=== PATIENT | female | born 1975 | race Hispanic/Latino ===

== ENCOUNTER 2017-05-09 19:02 | Emergency (ER) | payer OTHER ==
[~2017-05-09] VITALS: Ht 160 cm; Wt 117.9 kg
[~2017-05-09 19:02] MED LIST: ATORVASTATIN CA40 M1 PO; GABAPENTIN300 M2 PO; GLIMEPIRIDE2 MG PO; HUMALOG MI100 UNIT/4 SC; HYDROXYZINE HCL25 M2 PO; LEVOTHYROXINE200 MC1 PO; LINZESS145 MC1 PO; LISINOPRIL-HCT1 EAC2 PO; LISINOPRIL20 M1 PO; METFORMIN HCL1000 M1 PO; NORVASC10 M1 PO; OMEPRAZOLE40 M1 PO; VITAMIN D250000 UNIT PO
[2017-05-09 19:58] LABS: ABSOLUTE BASOPHIL COUNT 0 /CUMM (0.0-0.2); ABSOLUTE EOSINOPHIL COUNT 0.3 /CUMM (0.0-0.7); ABSOLUTE GRANULOCYTE CT 6.7 /CUMM (1.4-6.5); ABSOLUTE LYMPH COUNT 1.9 /CUMM (1.2-3.4); ABSOLUTE MONOCYTE COUNT 0.7 /CUMM (0.10-0.60); BASOPHIL % 0.3 % (0.0-2.0); EOSINOPHIL % 3.2 % (0-5); GRANULOCYTE % 69.8 % (42.2-75.2); HEMATOCRIT 37.8 % (37-47); MEAN CORPUSCULAR HGB 27.8 PG (27.0-31.0); MEAN CORPUSCULAR HGB CONC 32.4 G/DL (33.0-37.0); MEAN CORPUSCULAR VOLUME 85.7 FL (81.0-99.0); PLATELET COUNT 403 /CUMM (130-400); RBC DISTRIBUTION WIDTH 13.7 % (11.5-14.5); RED BLOOD CELL CT 4.42 /CUMM (4.20-5.40); WHITE BLOOD CELL COUNT 9.6 /CUMM (4.8-10.8)
--- NOTE | 2017-05-09 20:26 | ULTRASOUND REPORT ---
EXAMINATION: US TRIPLEX OF LOWER EXTREMITIES, BILATERAL CLINICAL INFORMATION: Bilateral lower extremity pain and swelling. Edema. COMPARISON: None TECHNIQUE: Color-flow triplex imaging with spectral analysis and compression Doppler were performed on the lower extremities. FINDINGS: Respiratory variation, normal compression and augmented flow are noted throughout the lower extremities. The visualized common femoral vein, superficial femoral vein, profunda femoral vein, popliteal vein and midcalf peroneal and posterior tibial venous segments show no evidence of deep venous thrombosis. There is no Guerrero's cyst. IMPRESSION: Normal triplex scan without evidence of deep venous thrombosis involving the lower extremities.
--- NOTE | 2017-05-09 20:41 | RADIOLOGY REPORT ---
EXAMINATION: XR CHEST CLINICAL INFORMATION: 42-year-old woman with CHF. COMPARISON: None TECHNIQUE: 2 views of the chest were obtained. FINDINGS: The lungs are well expanded and clear, without evidence of focal consolidation or overt pulmonary edema. There is mild cardiomegaly. There are no large pleural effusions. IMPRESSION: There is no evidence of an acute cardiopulmonary process.
--- NOTE | 2017-05-09 21:35 | ED UPPER/LOWER EXTREMITY COMPL ---
History of Present Illness General Chief Complaint: General Adult Stated Complaint: SWOLLEN LEGS Source: patient Exam Limitations: no limitations Vital Signs & Intake/Output Vital Signs & Intake/Output Vital Signs Date Time Temp Pulse Resp B/P B/P Pulse O2 O2 Flow FiO2 Mean Ox Delivery Rate 05/10 0041 97.9 80 22 133/78 98 05/09 2223 98.9 96 18 148/83 95 Room Air 05/09 1927 97.3 105 24 162/91 96 Room Air ED Intake and Output 05/10 0000 05/09 1200 Intake Total Output Total Balance Patient 260 lb Weight Weight Reported by Patient Measurement Method Allergies Coded Allergies: adhesive tape (Mild, RASH 12/03/16) doxycycline (Mild, RASH 12/03/16) latex (Mild, RASH 12/03/16) Triage Note: PT PRESENTS TO THE ER C/O BLE SWELLING. PT RLE TRACE EDEMA, LLE +2 EDEMA AND VERY PAINFUL TO THE TOUCH. PT STATES THAT PAIN IS 10/10 LLE. PT HAS HX OF TRACH, REMOVED 2 YEARS AGO. PT STATES IN 2005 THAT SHE WENT TO HOSPITAL WITH SAME SYMPTOMS AND HAS CLOTS IN HER LUNGS WAS TRACHED AND WOKE UP DAYS LATER IN A COMA. Triage Nurses Notes Reviewed? yes Onset: Gradual Duration: day(s):, constant, continues in ED, getting worse Severity: severe Pain/Injury Location: Left: Hip, Leg, Knee, Thigh, Foot, Ankle. : No Patient currently breastfeeds: No HPI: Patient presents for evaluation of worsening and severe left leg pain that began 4-5 days ago. Initially the patient states she had bilateral leg swelling but then the left became worse than the right. She states that the pain became severe yesterday and today got to the point where she can no longer ambulate. She tried ibuprofen without relief. She denies any known injury. Nothing seems to make her feel better at this point. (Yessica TALLEY,Mike Gibbons) Reconcile Medications Atorvastatin Calcium 40 MG TABLET 1 TAB PO DAILY CHOLESTEROL Cephalexin (Keflex) 750 MG CAPSULE 1 CAP PO BID FOOT INFECTION Ergocalciferol (Vitamin D2) (Vitamin D2) 50,000 UNIT CAPSULE 1 CAP PO QW VITAMIN (Reported) Gabapentin 300 MG CAPSULE 1 CAP PO TID PRN PAIN Hydrocodone/Acetaminophen ([place] 5-325 Tablet) 5 MG-325 MG TABLET 1-2 TAB PO Q6 pain Insulin NPL/Insulin Lispro (Humalog Mix 50-50 Kwikpen) 100 UNIT/ML (50-50) INSULN.PEN 15 UNITS SC AC DM (Reported) Levothyroxine Sodium 200 MCG TABLET 1 TAB PO DAILY HYPOTHYROIDISM Linaclotide (Linzess) 145 MCG CAPSULE 1 CAP PO DAILY COSTIPATION (Reported) Lisinopril 20 MG TABLET 1 TAB PO DAILY HYPERTENSION Metformin HCl 1,000 MG TABLET 1 TAB PO BID DIABETES Omeprazole 40 MG CAPSULE.DR 1 CAP PO DAILY GERD Sulfamethoxazole/Trimethoprim (Bactrim Ds Tablet) 800 MG-160 MG TABLET 1 TAB PO BID FOOT INFECTION (Mario TALLEY,Paul Penaloza) Past History Travel History Traveled to [place] past 21 day No Medical History Any Pertinent Medical History? see below for history Cardiovascular: hypertension, hyperlipidemia Respiratory: asthma, obstructive sleep apnea Endocrine: diabetes, hypothyroidism Blood Disorders: DVT, PE Surgical History Surgical History: non-contributory Psychosocial History What is your primary language Turkish Tobacco Use: Current Not Daily (NON SMOKER) Family History Hx Contributory? No (Yessica TALLEY,Mike Gibbons) Review of Systems Review of Systems Constitutional: Reports: no symptoms. EENTM: Reports: no symptoms. Respiratory: Reports: no symptoms. Cardiovascular: Reports: no symptoms. Gastrointestinal/Abdominal: Reports: no symptoms. Genitourinary: Reports: no symptoms. Musculoskeletal: Reports: see HPI. Skin: Reports: see HPI. Neurological/Psychological: Reports: no symptoms. Hematologic/Endocrine: Reports: no symptoms. Immunological: Reports: no symptoms. All Other Systems: Reviewed and Negative (Yessica TALLEY,Mike Gibbons) Physical Exam Physical Exam General Appearance: SEE BELOW Comments: Gen.: Well-nourished, well-developed, no acute respiratory distress. Moderate distress secondary to left leg pain. Head: Normocephalic, atraumatic. Eyes: Normal inspection bilaterally Ears: Normal inspection bilaterally Nose: Normal inspection Throat/mouth : Moist mucosa Neck: Supple, full range of motion, no goiter Heart: Regular rate and rhythm Lungs: Quiet respirations Back: Normal range of motion Extremities: Right lower extremity: Unremarkable evaluation, left lower extremity: Swelling erythema and warmth of the dorsum of the left foot with severe tenderness. Patient is tender throughout the left lower extremity but only the foot shows obvious swelling erythema and warmth. There is no apparent manic injury. Neurologic: Cranial nerves grossly intact, speech is clear Skin: warm and dry Psychiatric: Calm, cooperative, no apparent delusions or hallucinations (Yessica TALLEY,Mike Gibbons) Progress Differential Diagnosis: cellulitis, compartment syndrome, contusion, dislocation , fracture, septic arthritis, sprain Plan of Care: Orders Procedure Date/time Status Durable Medical Equipment 05/09 2356 Active TROPONIN LEVEL 05/09 1936 Complete LACTIC ACID 05/09 1936 Complete D-DIMER 05/09 1936 Complete COMPREHENSIVE METABOLIC PANEL 05/09 1936 Complete CBC WITHOUT DIFFERENTIAL 05/09 1936 Complete EKG 05/09 1936 Active Laboratory Tests 05/09/172236: Lactic Acid Cancelled 05/09/17 1950: Anion Gap 10, Estimated GFR > 60, BUN/Creatinine Ratio 18.0, Glucose 234 H, Lactic Acid 1.1, Calcium 9.5, Total Bilirubin 0.5, AST 17, ALT 28, Alkaline Phosphatase 71, Troponin I < 0.01, Total Protein 7.1, Albumin 3.9, Globulin 3.2, Albumin/Globulin Ratio 1.2, D-Dimer High Sensitivty < 200, CBC w Diff NO MAN DIFF REQ, RBC 4.42, MCV 85.7, MCH 27.8, MCHC 32.4 L, RDW 13.7, MPV 7.0 L, Gran % 69.8, Lymphocytes % 19.5 L, Monocytes % 7.2, Eosinophils % 3.2, Basophils % 0.3, Absolute Granulocytes 6.7 H, Absolute Lymphocytes 1.9, Absolute Monocytes 0.7 H, Absolute Eosinophils 0.3, Absolute Basophils 0 Diagnostic Imaging: Discussed w/RAD: Radiology Read. Radiology Impression: PATIENT: BASIA PACKER PRESENT AGE: 42 PATIENT ACCOUNT NO: [id number] : 74 LOCATION: [facility] ORDERING PHYSICIAN: Mike Juan MD SERVICE DATE: 05/09/17 EXAM TYPE: RAD - XRY-FOOT COMPLETE, LEFT EXAMINATION: LEFT FOOT 3 VIEWS CLINICAL INFORMATION: Left foot swelling. Erythema. COMPARISON: None. TECHNIQUE: AP, lateral, oblique views of the left foot were obtained. FINDINGS: There are no fractures or dislocations. There is soft tissue swelling along the dorsum of the foot. No ankle joint effusion is identified. There are small calcaneal spurs. IMPRESSION: Soft tissue swelling without fracture or bone destruction. Small calcaneal spurs. DICTATED BY: Reji Stokes MD DATE/TIME DICTATED:05/09/172222 COMMERCIAL PEST CONTROL TECHNICIAN:CHARLEE DATE/TIME TRANSCRIBED:05/09/172222 CONFIDENTIAL, DO NOT COPY WITHOUT APPROPRIATE AUTHORIZATION. <Electronically signed in Other Vendor System> SIGNED BY: Reji Stokes MD 05/09/172226, PATIENT: BASIA PACKER PRESENT AGE: 42 PATIENT ACCOUNT NO: [id number] : 74 LOCATION: ER ORDERING PHYSICIAN: Mike Juan MD SERVICE DATE: 05/09/17 EXAM TYPE: RAD - XRY-CHEST XRAY, TWO VIEWS EXAMINATION: XR CHEST CLINICAL INFORMATION: 42-year-old woman with CHF. COMPARISON: None TECHNIQUE: 2 views of the chest were obtained. FINDINGS: The lungs are well expanded and clear, without evidence of focal consolidation or overt pulmonary edema. There is mild cardiomegaly. There are no large pleural effusions. IMPRESSION: There is no evidence of an acute cardiopulmonary process. DICTATED BY: Shantelle Godfrey MD DATE/TIME DICTATED:05/09/172034 COMMERCIAL PEST CONTROL TECHNICIAN:CHARLEE DATE/TIME TRANSCRIBED:05/09/172034 CONFIDENTIAL, DO NOT COPY WITHOUT APPROPRIATE AUTHORIZATION. <Electronically signed in Other Vendor System> SIGNED BY: Shantelle Godfrey MD 05/09/172040, PATIENT: BASIA PACKER PRESENT AGE: 42 PATIENT ACCOUNT NO: [id number] : 74 LOCATION: [facility] ORDERING PHYSICIAN: Aamir TINEO SERVICE DATE: 05/09/17 EXAM TYPE: US - US-EXT BILAT VENOUS DOPPLER EXAMINATION: US TRIPLEX OF LOWER EXTREMITIES, BILATERAL CLINICAL INFORMATION: Bilateral lower extremity pain and swelling. Edema. COMPARISON: None TECHNIQUE: Color-flow triplex imaging with spectral analysis and compression Doppler were performed on the lower extremities. FINDINGS: Respiratory variation, normal compression and augmented flow are noted throughout the lower extremities. The visualized common femoral vein, superficial femoral vein, profunda femoral vein, popliteal vein and midcalf peroneal and posterior tibial venous segments show no evidence of deep venous thrombosis. There is no Guerrero's cyst. IMPRESSION: Normal triplex scan without evidence of deep venous thrombosis involving the lower extremities. DICTATED BY: Reji Stokes MD DATE/TIME DICTATED:05/09/172016 COMMERCIAL PEST CONTROL TECHNICIAN:CHARLEE DATE/TIME TRANSCRIBED:05/09/172016 CONFIDENTIAL, DO NOT COPY WITHOUT APPROPRIATE AUTHORIZATION. <Electronically signed in Other Vendor System> SIGNED BY: Reji Stokes MD 05/09/172025 Comments: 05/09/2017 11:20:48 PM patient signed out to Dr. Martin at shift government instructor. Patient treated with IV antibiotics for left foot cellulitis and given IV acetaminophen and morphine for pain. Plan reevaluation for ability to ambulate and subsequent outpatient management. (Yessica TALLEY,Mike Gibbons) Departure Departure Disposition: STILL A PATIENT Condition: Stable Clinical Impression Primary Impression: Cellulitis of left foot Referrals: Tammy Munoz MD (PCP/Family) Departure Forms: Customer Survey General Discharge Information (Yessica TALLEY,Mike Gibbons) Departure Prescriptions: Current Visit Scripts Cephalexin (Keflex) 1 CAP PO BID #20 CAP Sulfamethoxazole/Trimethoprim (Bactrim Ds Tablet) 1 TAB PO BID #20 TAB Hydrocodone/Acetaminophen ([place] 5-325 Tablet) 1-2 TAB PO Q6 #20 TAB Comments 05/09/17, 23:57... Pt resting comfortably... benign labs/xray/u/s... pt safe for discharge with crutches... close follow up advised. PA/[employer] BUSINESS INTELLIGENCE CONSULTANT Co-Sign Statement Statement: ED Attending supervision documentation- [] I saw and evaluated the patient. I have also reviewed all the pertinent lab results and diagnostic results. I agree with the findings and the plan of care as documented in the PA's/[employer] BUSINESS INTELLIGENCE CONSULTANT's documentation. [] I have reviewed the ED Record and agree with the PA's/[employer] BUSINESS INTELLIGENCE CONSULTANT's documentation. [] Additions or exceptions (if any) to the PAs/[employer] BUSINESS INTELLIGENCE CONSULTANT's note and plan are summarized below: [] (Mario TALLEY,Paul Penaloza)
--- NOTE | 2017-05-09 22:27 | RADIOLOGY REPORT ---
EXAMINATION: LEFT FOOT 3 VIEWS CLINICAL INFORMATION: Left foot swelling. Erythema. COMPARISON: None. TECHNIQUE: AP, lateral, oblique views of the left foot were obtained. FINDINGS: There are no fractures or dislocations. There is soft tissue swelling along the dorsum of the foot. No ankle joint effusion is identified. There are small calcaneal spurs. IMPRESSION: Soft tissue swelling without fracture or bone destruction. Small calcaneal spurs.
[2017-05-09] MEDS ORDERED: NORCO 5-325 TA1 EACH PO (23:41)
[2017-05-09] MEDS ORDERED: BACTRIM DS TAB1 EACH PO (23:41)
[2017-05-09] MEDS ORDERED: KEFLEX750 M1 PO (23:41)
[2017-05-10 00:41] VITALS: BP 133/78
== END 2017-05-10 00:42 ==
LOC: ERH 19:02
PROVIDERS: Emergency Medicine
DX: L03.116 Cellulitis of left lower limb (principal)
CPT/HCPCS: 71046; 73630-LT; 93005; 93010; 93970; 96374; 96375; J0131

== ENCOUNTER 2017-08-11 16:23 | Emergency (ER) | payer OTHER ==
[~2017-08-11] VITALS: Ht 160 cm; Wt 117.9 kg
[~2017-08-11 16:23] MED LIST changes: +BACTRIM DS TAB1 EACH PO; +KEFLEX750 M1 PO; +NORCO 5-325 TA1 EACH PO
[2017-08-11 17:10] LABS: ABSOLUTE BASOPHIL COUNT 0 /CUMM (0.0-0.2); ABSOLUTE EOSINOPHIL COUNT 0.3 /CUMM (0.0-0.7); ABSOLUTE GRANULOCYTE CT 4.7 /CUMM (1.4-6.5); ABSOLUTE LYMPH COUNT 1.8 /CUMM (1.2-3.4); ABSOLUTE MONOCYTE COUNT 0.5 /CUMM (0.10-0.60); BASOPHIL % 0.6 % (0.0-2.0); EOSINOPHIL % 3.7 % (0-5); GRANULOCYTE % 64.5 % (42.2-75.2); HEMATOCRIT 32.7 % (37-47); MEAN CORPUSCULAR HGB 28.3 PG (27.0-31.0); MEAN CORPUSCULAR HGB CONC 33.5 G/DL (33.0-37.0); MEAN CORPUSCULAR VOLUME 84.4 FL (81.0-99.0); MEAN PLATELET VOLUME 6.9 FL (7.4-10.4); PLATELET COUNT 358 /CUMM (130-400); RBC DISTRIBUTION WIDTH 14.4 % (11.5-14.5); RED BLOOD CELL CT 3.87 /CUMM (4.20-5.40); WHITE BLOOD CELL COUNT 7.3 /CUMM (4.8-10.8)
--- NOTE | 2017-08-11 17:57 | ULTRASOUND REPORT ---
EXAMINATION: US TRIPLEX OF LOWER EXTREMITIES, BILATERAL CLINICAL INFORMATION: Edema COMPARISON: None TECHNIQUE: Color-flow triplex imaging with spectral analysis and compression Doppler were performed on the lower extremities. FINDINGS: Respiratory variation, normal compression and augmented flow are noted throughout the lower extremities. The visualized common femoral vein, superficial femoral vein, profunda femoral vein, popliteal vein and midcalf peroneal and posterior tibial venous segments show no evidence of deep venous thrombosis. There is no Guerrero's cyst. IMPRESSION: No evidence of deep venous thrombosis involving the bilateral lower extremities.
--- NOTE | 2017-08-11 18:29 | RADIOLOGY REPORT ---
EXAMINATION: XR CHEST CLINICAL INFORMATION: Chest pain COMPARISON: 05/09/2017 TECHNIQUE: 2 views of the chest were obtained. FINDINGS: No significant abnormality is noted involving the heart, lungs, mediastinum, bony thorax or soft tissues. IMPRESSION: Unremarkable examination.
--- NOTE | 2017-08-11 18:58 | ED GENERAL ADULT ---
History of Present Illness General Chief Complaint: General Adult Stated Complaint: PT WAS SIB DR FOR LEFT SIDE SWOLLEN Source: patient Exam Limitations: no limitations Vital Signs & Intake/Output Vital Signs & Intake/Output Vital Signs Date Time Temp Pulse Resp B/P B/P Pulse O2 O2 Flow FiO2 Mean Ox Delivery Rate 08/12 1919 96 Room Air 08/11 1917 98.9 94 18 147/74 100 Room Air 08/11 1912 97 08/11 1642 98.8 104 18 153/88 96 Room Air Allergies Coded Allergies: adhesive tape (Mild, RASH 12/03/16) doxycycline (Mild, RASH 12/03/16) latex (Mild, RASH 12/03/16) Reconcile Medications Albuterol Sulfate (Proair Hfa) 90 MCG HFA.AER.AD 2 PUF INH Q4-6 PRN PRN COUGH SOB Atorvastatin Calcium 40 MG TABLET 1 TAB PO DAILY CHOLESTEROL Cephalexin (Keflex) 750 MG CAPSULE 1 CAP PO BID FOOT INFECTION Ergocalciferol (Vitamin D2) (Vitamin D2) 50,000 UNIT CAPSULE 1 CAP PO QW VITAMIN (Reported) Gabapentin 300 MG CAPSULE 1 CAP PO TID PRN PAIN Hydrocodone/Acetaminophen ([place] 5-325 Tablet) 5 MG-325 MG TABLET 1-2 TAB PO Q6 pain Insulin NPL/Insulin Lispro (Humalog Mix 50-50 Kwikpen) 100 UNIT/ML (50-50) INSULN.PEN 15 UNITS SC AC DM (Reported) Levothyroxine Sodium 200 MCG TABLET 1 TAB PO DAILY HYPOTHYROIDISM Linaclotide (Linzess) 145 MCG CAPSULE 1 CAP PO DAILY COSTIPATION (Reported) Lisinopril 20 MG TABLET 1 TAB PO DAILY HYPERTENSION Metformin HCl 1,000 MG TABLET 1 TAB PO BID DIABETES Omeprazole 40 MG CAPSULE.DR 1 CAP PO DAILY GERD Oxycodone HCl/Acetaminophen (Percocet 5-325 MG Tablet) 5 MG-325 MG TABLET 1 TAB PO 4 TIMES/DAY PRN PAIN Prednisone 50 MG TABLET 1 TAB PO DAILY BRONCHITIS Sulfamethoxazole/Trimethoprim (Bactrim Ds Tablet) 800 MG-160 MG TABLET 1 TAB PO BID FOOT INFECTION Triage Note: 42 YEAR OLD FEMALE STATES THAT SHE HAS HISTORY OF PE/DVT LAST PE WAS IN 2007 AND SHE ENDED UP WITH [facility] WHICH THEY REVERSED IN 2017. PT STATES THAT SHE HAS BEEN HAVING LLE SWELLING AND PAIN FOR THE PAST 2 WEEKS AND PAIN IN HER BACK.CALLED PMD AND WAS TOLD TO COME TO ER. PT IS NOT ON BLOOD THINNERS Triage Nurses Notes Reviewed? yes Onset: Gradual Duration: week(s): (2), constant, continues in ED Timing: single episode today Injury Environment: home Severity: moderate, severe Severity Numbers: 10 No Modifying Factors: none Modifying Factors: Worsens With: movement. LMP (ages 10-50): unknown : No Patient currently breastfeeds: No HPI: 42 year old female with hx of dvt/pe, htn, hld, dm presents for eval of of rt rib and chest pain. pt rpeorts symptoms started 2 week ago and have been persistent. she reports that she has been coughing and having sob before symptoms started. pain is located in the rt ribs back and chest. described as sharp. worse with movement and deep inspiration. no fever, or hemoptysis. cough is dry. she has been taking tylenol and ibuprofne without improvement. she also reprots that she has noticed left lower leg swelling. she is worried about dvt. no fever, abdominal pain, n/v/d, urinary symptoms. no numbness. (Jamal Swift) Past History Travel History Traveled to [place] past 21 day No Medical History Any Pertinent Medical History? see below for history Neurological: NONE EENT: NONE Cardiovascular: hypertension, hyperlipidemia Respiratory: asthma, obstructive sleep apnea Endocrine: diabetes, hypothyroidism Blood Disorders: DVT, PE Surgical History Surgical History: non-contributory Psychosocial History What is your primary language Ivorian Tobacco Use: Never used ETOH Use: denies use Illicit Drug Use: denies illicit drug use Family History Hx Contributory? No (Jamal Swift) Review of Systems Review of Systems Constitutional: Reports: no symptoms. EENTM: Reports: no symptoms. Respiratory: Reports: see HPI, cough, short of breath, wheezing. Cardiovascular: Reports: see HPI, chest pain, peripheral edema. GI: Reports: no symptoms. Genitourinary: Reports: no symptoms. Musculoskeletal: Reports: see HPI, back pain, muscle pain, muscle stiffness. Skin: Reports: no symptoms. Neurological/Psychological: Reports: no symptoms. Hematologic/Endocrine: Reports: no symptoms. Immunologic/Allergic: Reports: no symptoms. All Other Systems: Reviewed and Negative (Jamal Swift) Physical Exam Physical Exam General Appearance: well developed/nourished, no apparent distress, alert, awake , obese Head: atraumatic, normal appearance Eyes: Bilateral: normal appearance, PERRL, EOMI. Ears, Nose, Throat: normal pharynx, normal ENT inspection, hearing grossly normal Neck: normal inspection, supple, full range of motion Respiratory: no respiratory distress, wheezing (end expiratory ), rt chest wall, rt lateral ribs and rt posterio ribs are tender to palpation. no rash, brusing swelling or abrasions Cardiovascular: regular rate/rhythm, normal peripheral pulses Peripheral Pulses: 2+ radial (R), 2+ radial (L), 2+ tibialis posterior (R), 2+ tibialis posterior ( L), 2+ dorsalis pedis (R), 2+ dorsalis pedis (L) Gastrointestinal: soft, non-tender Back: normal inspection, normal range of motion, no vertebral tenderness Extremities: normal inspection, normal range of motion, the left loweer extremity is slightly swollen compared to the rt. no erythema Neurologic/Psych: no motor/sensory deficits, awake, alert, oriented x 3, normal gait, normal mood/affect Skin: intact, normal color, warm/dry Lymphatic: no anterior cervical suzanne Core Measures ACS in differential dx? No CVA/TIA Diagnosis: No Sepsis Present: No Sepsis Focused Exam Completed? No (Enmanuel TINEO,Jamal) Progress Differential Diagnoses I considered the following diagnoses in my evaluation of the patient: [pe, pna, acute bronchitis, acs, muscle pain, costochondritis, aortic disection] Plan of Care: Orders Procedure Date/time Status EKG 08/11 1940 Active TROPONIN LEVEL 08/11 1641 Complete HUMAN BETA HCG SCREEN 08/11 164 Complete D-DIMER 08/11 164 Complete COMPREHENSIVE METABOLIC PANEL 08/11 164 Complete CBC WITHOUT DIFFERENTIAL 08/11 164 Complete EKG 08/11 164 Active Laboratory Tests 08/11/17 1649: Anion Gap 11, Estimated GFR > 60, BUN/Creatinine Ratio 17.0, Glucose 225 H, Calcium 8.9, Total Bilirubin 0.2, AST 13 L, ALT 24, Alkaline Phosphatase 60, Troponin I < 0.01, Total Protein 6.3, Albumin 3.4 L, Globulin 2.9, Albumin/ Globulin Ratio 1.2, Total Beta HCG NEGATIVE, D-Dimer High Sensitivty < 200, CBC w Diff NO MAN DIFF REQ, RBC 3.87 L, MCV 84.4, MCH 28.3, MCHC 33.5, RDW 14.4, MPV 6.9 L, Gran % 64.5, Lymphocytes % 24.9, Monocytes % 6.3, Eosinophils % 3.7, Basophils % 0.6, Absolute Granulocytes 4.7, Absolute Lymphocytes 1.8, Absolute Monocytes 0.5, Absolute Eosinophils 0.3, Absolute Basophils 0 pt seen and evlauted. she has reporducible rt back chest and rib pain that has been present constantly for 2 weeks. ultrasound is negative for dvt. ekg is not changed. labs are not showing any any acute changes. cta of the chest ordered to evaluated for pe and disection. pt rpeorts 10/10 pain. she was medicated with dilauded. pt was also given a duo neb since she was wheezing. cta is negative. pt is feeling better after nebs and dilauded. she will be tretaed for chest wall pain and acute bronchitis with prednisone, albuterol, and percocet. discussed return precautions ind etail. follow up with pcp in [facility] next few days,. return with any concerns. pt agrees. Diagnostic Imaging: Viewed by Me: CT Scan. Discussed w/RAD: CT Scan. Radiology Impression: PATIENT: BASIA PACKER PRESENT AGE: 42 PATIENT ACCOUNT NO: [id number] : 74 LOCATION: [facility] ORDERING PHYSICIAN: Jamal TINEO SERVICE DATE: 08/11/17 EXAM TYPE: CAT - CTA CHEST-PULMONARY EMBOLISM EXAMINATION: CT ANGIOGRAM OF THE CHEST WITH AND WITHOUT CONTRAST (CT PULMONARY ANGIOGRAM FOR PE) CLINICAL INFORMATION: Reason for Study:
Presumptive Dx: PE
Signs Symptoms: BACK PAIN RADIATING AROUND RT RIBS TO RT CHEST
COMPARISON: 04/22/2017 TECHNIQUE: Prior to contrast administration, noncontrast localization images were obtained. Subsequently, multidetector volumetric imaging was performed from the thoracic inlet to below the diaphragms following the administration of 80 mL Omnipaque 350 intravenous contrast. No contrast reaction reported. Sagittal, coronal, and MIP oblique sagittal reformatted images were obtained on the CT workstation, uploaded to PACS, and reviewed. Total exam dose-length product 533 mGy-cm. FINDINGS: QUALITY OF STUDY/CONTRAST BOLUS: Satisfactory PULMONARY ARTERIES: No central or segmental pulmonary emboli. THORACIC AORTA: No aneurysm or dissection. LUNG: No focal consolidation, nodules or masses. PLEURA: No pleural effusion or pneumothorax. MEDIASTINUM: Normal heart size. No pericardial effusion. No hilar or mediastinal lymphadenopathy. No evidence of septal bowing or right heart strain. CHEST WALL/AXILLA: No axillary or internal mammary lymphadenopathy. OSSEOUS STRUCTURES: Old healed bilateral rib fractures. UPPER ABDOMEN: Left adrenal adenoma stable measuring up to approximately 2.6 cm No reflux of contrast into the hepatic veins to suggest elevated right heart pressures. IMPRESSION: No evidence for any pulmonary embolism. VTE: negative VTE: DICTATED BY: Edinson Perry MD DATE/TIME DICTATED:08/11/171955 SEROLOGY TEACHER:CHARLEE DATE/TIME TRANSCRIBED:08/11/171955 CONFIDENTIAL, DO NOT COPY WITHOUT APPROPRIATE AUTHORIZATION. <Electronically signed in Other Vendor System> SIGNED BY: Edinson Perry MD 08/11/172009 Initial ED EKG: normal sinus rhythm, LVH, QTC 493 (Jamal Swift) Departure Departure Disposition: HOME OR SELF CARE Condition: Stable Clinical Impression Primary Impression: Chest wall pain Secondary Impressions: Acute bronchitis Qualifiers: Bronchitis organism: unspecified organism Qualified Code: J20.9 - Acute bronchitis, unspecified Referrals: Tammy Munoz MD (PCP/Family) Additional Instructions: Rest and drink plenty of fluids. Tylenol as needed for pain. Percocet for severe pain only. Take prednisone as directed for cough and wheezing. Pro-air inhaler 2 puffs every 4-6 hours as needed for shortness of breath. Make a follow-up appointment with her primary care doctor to review all results of today's visit. Monitor symptoms closely return with any concerns. Departure Forms: Customer Survey General Discharge Information Prescriptions: Current Visit Scripts Albuterol Sulfate (Proair Hfa) 2 PUF INH Q4-6 PRN PRN COUGH SOB #1 INHAL Prednisone 1 TAB PO DAILY #5 TAB Oxycodone HCl/Acetaminophen (Percocet 5-325 MG Tablet) 1 TAB PO 4 TIMES/DAY PRN PAIN #10 TAB (Jamal Swift) PA/FIELD MARKETING ASSOCIATE Co-Sign Statement Statement: ED Attending supervision documentation- [] I saw and evaluated the patient. I have also reviewed all the pertinent lab results and diagnostic results. I agree with the findings and the plan of care as documented in the PA's/FIELD MARKETING ASSOCIATE's documentation. [X] I have reviewed the ED Record and agree with the PA's/FIELD MARKETING ASSOCIATE's documentation. [] Additions or exceptions (if any) to the PAs/FIELD MARKETING ASSOCIATE's note and plan are summarized below: [] (Mario TALLEY,Paul Penaloza) Critical Care Note Critical Care Note Critical Care Time: non-applicable (Jamal Siwft)
[2017-08-11 19:18] VITALS: BP 147/74
--- NOTE | 2017-08-11 20:10 | CT SCAN REPORT ---
EXAMINATION: CT ANGIOGRAM OF THE CHEST WITH AND WITHOUT CONTRAST (CT PULMONARY ANGIOGRAM FOR PE) CLINICAL INFORMATION: Reason for Study:
Presumptive Dx: PE
Signs Symptoms: BACK PAIN RADIATING AROUND RT RIBS TO RT CHEST
COMPARISON: 04/22/2017 TECHNIQUE: Prior to contrast administration, noncontrast localization images were obtained. Subsequently, multidetector volumetric imaging was performed from the thoracic inlet to below the diaphragms following the administration of 80 mL Omnipaque 350 intravenous contrast. No contrast reaction reported. Sagittal, coronal, and MIP oblique sagittal reformatted images were obtained on the CT workstation, uploaded to PACS, and reviewed. Total exam dose-length product 533 mGy-cm. FINDINGS: QUALITY OF STUDY/CONTRAST BOLUS: Satisfactory PULMONARY ARTERIES: No central or segmental pulmonary emboli. THORACIC AORTA: No aneurysm or dissection. LUNG: No focal consolidation, nodules or masses. PLEURA: No pleural effusion or pneumothorax. MEDIASTINUM: Normal heart size. No pericardial effusion. No hilar or mediastinal lymphadenopathy. No evidence of septal bowing or right heart strain. CHEST WALL/AXILLA: No axillary or internal mammary lymphadenopathy. OSSEOUS STRUCTURES: Old healed bilateral rib fractures. UPPER ABDOMEN: Left adrenal adenoma stable measuring up to approximately 2.6 cm No reflux of contrast into the hepatic veins to suggest elevated right heart pressures. IMPRESSION: No evidence for any pulmonary embolism. VTE: negative VTE:
[2017-08-11] MEDS ORDERED: PERCOCET 5-3251 EACH PO (20:39)
[2017-08-11] MEDS ORDERED: PREDNISONE50 M1 PO (20:39)
[2017-08-11] MEDS ORDERED: PROAIR HFA8.5 GM INH (20:39)
== END 2017-08-11 20:54 ==
LOC: ERH 16:23
PROVIDERS: Physician Assistant Medical
DX: J20.9 Acute bronchitis, unspecified (principal); R07.89 Other chest pain
CPT/HCPCS: 1263; 71046; 93005; 93010; 93970; 96374; 96375; J2405

== ENCOUNTER 2017-10-28 16:55 | Observation (INO) | payer OTHER ==
[~2017-10-28] VITALS: Ht 160 cm; Wt 113.4 kg
[~2017-10-28 16:55] MED LIST changes: +PERCOCET 5-3251 EACH PO; +PREDNISONE50 M1 PO; +PROAIR HFA8.5 GM INH
[2017-10-28 18:13] LABS: ABSOLUTE BASOPHIL COUNT 0.1 /CUMM (0.0-0.2); ABSOLUTE EOSINOPHIL COUNT 0.2 /CUMM (0.0-0.7); ABSOLUTE GRANULOCYTE CT 6.2 /CUMM (1.4-6.5); ABSOLUTE LYMPH COUNT 1.9 /CUMM (1.2-3.4); ABSOLUTE MONOCYTE COUNT 0.5 /CUMM (0.10-0.60); BASOPHIL % 0.6 % (0.0-2.0); EOSINOPHIL % 1.7 % (0-5); GRANULOCYTE % 70.5 % (42.2-75.2); HEMATOCRIT 36.3 % (37-47); MEAN CORPUSCULAR HGB CONC 32.9 G/DL (33.0-37.0); MEAN CORPUSCULAR VOLUME 85.1 FL (81.0-99.0); MEAN PLATELET VOLUME 6.9 FL (7.4-10.4); PLATELET COUNT 472 /CUMM (130-400); RBC DISTRIBUTION WIDTH 14.4 % (11.5-14.5); RED BLOOD CELL CT 4.27 /CUMM (4.20-5.40); WHITE BLOOD CELL COUNT 8.7 /CUMM (4.8-10.8)
[2017-10-28 18:24] LABS: PT 11.4 SEC (9.4-12.5); PTT 31 SEC (25-37)
[2017-10-28] MEDS ORDERED: LISINOPRIL10 M1 PO (19:19)
[2017-10-28] MEDS ORDERED: HYDROXYZINE HCL25 M3 PO (19:20)
[2017-10-28] MEDS ORDERED: HYDROCHLOROTHIA25 M1 PO (19:20)
--- NOTE | 2017-10-28 23:28 | ED GENERAL ADULT ---
History of Present Illness General Chief Complaint: General Adult Stated Complaint: LT FOOT PAIN/REDNESS Source: patient Exam Limitations: no limitations Vital Signs & Intake/Output Vital Signs & Intake/Output Vital Signs Date Time Temp Pulse Resp B/P B/P Pulse O2 O2 Flow FiO2 Mean Ox Delivery Rate 10/29 0350 98.1 91 20 120/70 93 Room Air 10/29 0322 97.9 95 18 133/78 95 Room Air 10/28 2147 98.6 88 18 135/80 98 Room Air Room Air 10/28 1948 98.5 94 18 134/78 98 Room Air Room Air 10/28 1708 98.0 114 18 138/82 94 Room Air ED Intake and Output 10/29 0000 10/28 1200 Intake Total Output Total Balance Patient 250 lb Weight Allergies Coded Allergies: adhesive tape (Mild, RASH 12/03/16) doxycycline (Mild, RASH 12/03/16) latex (Mild, RASH 12/03/16) Triage Note: 42F REPORTS SHE NOTICED CRAMPING TO L DAVILA THE OTHER DAY AND THEN 5 DAYS AGO DEVELOPED SWELLING AND REDNESS TO DORSAL ASPECT OF FOOT AND ANKLE. DIFF WALKING. DENIES KNOWN INJURY. STATES THAT THE APPEARANCE AND PAIN HAVE STAYED THE SAME, BUT THE REDNESS IS WORSENING. APPEARS DARKENED AND DISCOLORED. TEMPERATURE EQUAL. REPORTS SYMMETRICAL SENSATION TO BOTH LOWER EXTREMITIES. PT DOES HAVE A HX OF DVT AND PE THAT LEAD TO HER BECOMMING TRACH'ED Triage Nurses Notes Reviewed? yes Onset: Gradual Duration: day(s): Timing: constant : No Patient currently breastfeeds: No HPI: 42 y/o female with a h/o HTN, HLD, asthma, obesity, JOSE MARTIN, diabetes, hypothyroid, multiple DVT/PE's (required intubation in 2005 for PE, was unable to ween and required tach, trach removed 3 years ago with closure of her trach site 1 month ago) now with pain, swelling, and redness to her left lower extremity x5-7 days. Pt reports she initially had pain/cramping in her left davila and calf. Pain has since progress to her ankle/foot. Has had difficulty ambulating on the extremity. Denies trauma to the leg. Denies fevers, numbness, paresthesias. (Nita TINEO,Loree) Reconcile Medications Albuterol Sulfate (Proair Hfa) 90 MCG HFA.AER.AD 2 PUF INH Q4-6 PRN PRN COUGH SOB Atorvastatin Calcium 40 MG TABLET 1 TAB PO DAILY CHOLESTEROL Cephalexin (Keflex) 500 MG CAPSULE 1 CAP PO 4 TIMES/DAY CELLULITIS Please take 4 times per day. Ergocalciferol (Vitamin D2) (Vitamin D2) 50,000 UNIT CAPSULE 1 CAP PO QSUN VITAMIN (Reported) Hydrochlorothiazide 25 MG TABLET 1 TAB PO DAILY DIURETIC (Reported) Hydroxyzine HCl (hydrOXYzine HCl) 25 MG TABLET 1 TAB PO DAILY PRN ANXIETY ( Reported) Insulin NPL/Insulin Lispro (Humalog Mix 50-50 Kwikpen) 100 UNIT/ML (50-50) INSULN.PEN 25 UNITS SC TIDAC/HS DM (Reported) Levothyroxine Sodium 200 MCG TABLET 1 TAB PO DAILY HYPOTHYROIDISM Linaclotide (Linzess) 145 MCG CAPSULE 1 CAP PO DAILY COSTIPATION (Reported) Lisinopril 10 MG TABLET 1 TAB PO DAILY BP (Reported) Metformin HCl 1,000 MG TABLET 1 TAB PO BID DIABETES Omeprazole 40 MG CAPSULE.DR 1 CAP PO DAILY GERD (Tip Estrada MD) Past History Travel History Traveled to [place] past 21 day No Medical History Any Pertinent Medical History? see below for history Neurological: NONE EENT: NONE Cardiovascular: hypertension, hyperlipidemia Respiratory: asthma, obstructive sleep apnea Gastrointestinal: NONE Hepatic: NONE Renal: NONE Musculoskeletal: NONE Psychiatric: NONE Endocrine: diabetes, hypothyroidism Blood Disorders: DVT, PE Surgical History Surgical History: non-contributory Psychosocial History What is your primary language Belarusian Tobacco Use: Refused to answer Family History Hx Contributory? No (Loree Quintero) Review of Systems Review of Systems Constitutional: Reports: no symptoms. EENTM: Reports: no symptoms. Respiratory: Reports: no symptoms. Cardiovascular: Reports: no symptoms. GI: Reports: no symptoms. Genitourinary: Reports: no symptoms. Musculoskeletal: Reports: see HPI. Skin: Reports: see HPI. Neurological/Psychological: Reports: no symptoms. Hematologic/Endocrine: Reports: no symptoms. Immunologic/Allergic: Reports: no symptoms. All Other Systems: Reviewed and Negative (Loree Quintero) Physical Exam Physical Exam General Appearance: well developed/nourished, no apparent distress, alert, awake Comments: Gen.: Well-nourished, well-developed, no acute distress. Head: Normocephalic, atraumatic. Eyes: Normal inspection bilaterally Ears: Normal inspection bilaterally Nose: Normal inspection Neck: Normal inspection Lungs: clear to auscultation bilaterally, normnal breath sounds Heart: regular rate and rhythm Abdomen: soft and non-tender Extremities: Left lower extremity Inspection: Positive edema to the lower portion of the leg encompassing the calf , ankle, and foot. Erythema to the distal aspect of the leg over the ankle. Mild increased warmth. Palpation: Tender to palpation over the calf and ankle ROM: unrestricted range of motion at the knee joint, decreased range of motion at the ankle joint Sensation: intact Motor strength: Decreased motor strength Pulse: Dorsalis pedis and posterior tibialis pulses were not palpable, but both were audible with Doppler Patient is able to stand and bear weight, but unable to ambulate. Neurologic: alert and oriented x3 Skin: warm and dry Psychiatric: Normal mood and affect, no apparent delusions or hallucinations, behavior appropriate Core Measures ACS in differential dx? No CVA/TIA Diagnosis: No Sepsis Present: No Sepsis Focused Exam Completed? No (Nita TINEO,Loree) Progress Differential Diagnoses I considered the following diagnoses in my evaluation of the patient: [DVT versus cellulitis versus fracture, low concern for arterial thrombus] Plan of Care: Orders Procedure Date/time Status Consistent Carbohydrate 3 10/29 B Active US-DUPLEX VENOUS EXTREM UNI 10/29 0900 Active CBC WITHOUT DIFFERENTIAL 10/29 0600 Complete BASIC ELECTROLYTES PLUS BUN&CR 10/29 0600 Complete Vital Signs 10/29 0452 Active Teach/Educate 10/29 045 Active Pain Treatment and Response 10/29 045 Active Nutritional Intake, Monitor 10/29 045 Active Isolation 10/29 0452 Active Intake & Output 10/29 0452 Active Patient Care Conference 10/29 0452 Active Activity/Ambulation 10/29 0452 Active BLOOD CULTURE 10/29 0354 Active URINE 10/29 0249 Complete Pathway - chart 10/29 0159 Active House Staff 10/29 0159 Active Patient Data 10/29 0159 Active Code Status 10/[address] in observation 10/29 0155 Active Patient Data 10/29 0038 Active VTE Mechanical Prophylaxis 10/29 UNK Active Vital Signs 10/29 UNK Active FingerStick- Glucose 10/29 UNK Active Activity/Ambulation 10/29 UNK Active OXYGEN SETUP (GEN) 10/28 2330 Active Saline Lock 10/28 2329 Active Patient Data 10/28 2329 Active Vital Signs 10/28 2329 Complete Activity/Ambulation 10/28 2329 Complete Code Status 10/28 2329 Complete FingerStick- Glucose 10/28 2126 Complete PARTIAL THROMBOPLASTIN TIME 10/28 1753 Complete PROTHROMBIN TIME 10/28 1753 Complete COMPREHENSIVE METABOLIC PANEL 10/28 175 Complete CBC WITHOUT DIFFERENTIAL 10/28 175 Complete B-TYPE NATRIURETIC PEP (BNP) 10/28 175 Complete Intake & Output 10/28 171 Active Current Medications Sig/Jaydon Start time Last Medication Dose Stop Time Status Admin Atorvastatin Calcium 40 MG 1700 10/29 1700 AC (Lipitor) Levothyroxine Sodium 0.2 MG DAILY AC 10/29 0700 AC 10/29 (Synthroid) 0558 Omeprazole 40 MG DAILY AC 10/29 0700 AC 10/29 (Prilosec) 0557 Heparin Sodium 5,000 UNIT Q8 10/29 0600 AC 10/29 (Porcine) 0600 Cefazolin Sodium 500 MG Q12 10/29 0400 AC 10/29 (Kefzol-Ancef Inj) 1004 Hydroxyzine HCl 25 MG DAILY PRN 10/29 0215 AC (Atarax) Acetaminophen 650 MG Q6P PRN 10/29 0200 AC 10/29 (Tylenol) 1013 Albuterol Sulfate 2 PUF Q4-6 PRN PRN 10/29 0200 AC (Ventolin) Insulin Aspart 0 TIDAC 10/29 0200 AC 10/29 (NovoLOG) 1249 Oxycodone/ 1 TAB Q6P PRN 10/29 0200 AC 10/29 Acetaminophen 0609 (Percocet) Sodium Chloride 1,000 ML .[id number] 10/29 0200 AC 10/29 (Normal Saline 0.9%) 10/29 1519 0400 Laboratory Tests 10/29/17 0829: Anion Gap 6, Estimated GFR 49 L, BUN/Creatinine Ratio 17.5, CBC w Diff NO MAN DIFF REQ, RBC 3.92 L, MCV 85.4, MCH 28.3, MCHC 33.1, RDW 14.2, MPV 7.1 L, Gran % 59.6, Lymphocytes % 28.7, Monocytes % 7.0, Eosinophils % 4.0, Basophils % 0.7, Absolute Granulocytes 3.7, Absolute Lymphocytes 1.8, Absolute Monocytes 0.4, Absolute Eosinophils 0.2, Absolute Basophils 0 10/29/17 0250: Urine Test NEGATIVE 10/28/17 1802: Anion Gap 10, Estimated GFR 41 L, BUN/Creatinine Ratio 20.7, Glucose 296 H, Calcium 9.5, Total Bilirubin 0.2, AST 15, ALT 23, Alkaline Phosphatase 101, Pro- B-Natriuretic Pept 107, Total Protein 7.0, Albumin 3.8, Globulin 3.2, Albumin/ Globulin Ratio 1.2, PT 11.4, INR 1.05, APTT 31, CBC w Diff NO MAN DIFF REQ, RBC 4.27, MCV 85.1, MCH 28.0, MCHC 32.9 L, RDW 14.4, MPV 6.9 L, Gran % 70.5, Lymphocytes % 21.2, Monocytes % 6.0, Eosinophils % 1.7, Basophils % 0.6, Absolute Granulocytes 6.2, Absolute Lymphocytes 1.9, Absolute Monocytes 0.5, Absolute Eosinophils 0.2, Absolute Basophils 0.1 Microbiology 10/29 353 BLOOD: Blood Culture - COLB 10/29 353 BLOOD: Blood Culture - COLB There is high concern for DVT given the patient's history and recent surgical procedure 1 month ago. She was started on Eliquis. Patient has had poor pain control despite 2 doses of morphine and IV Tylenol. She states she is unable to receive NSAIDs. Patient is still unable to ambulate after pain medication. Will admit to general medicine for pain control and ultrasound to rule out DVT in the morning. X-rays ordered to evaluate for bony injury. Initial ED EKG: none (Loree Quintero) Departure Departure Disposition: STILL A PATIENT Condition: Stable Clinical Impression Primary Impression: Left leg pain Secondary Impressions: Left leg swelling Referrals: Tammy Munoz MD (PCP/Family) Departure Forms: Customer Survey General Discharge Information Observation Note Spoke With: Otoniel Gr MD [facility] Patient In: Non-ED OBS Care Area Rationale for Observation: My rational for observation is as follows [pain control, anticoagulation, lower extremity Doppler ultrasound]. (Loree Quintero) Departure Prescriptions: Current Visit Scripts Cephalexin (Keflex) 1 CAP PO 4 TIMES/DAY #40 CAP Please take 4 times per day. PA/PRINT COLOR MATCHER Co-Sign Statement Statement: ED Attending supervision documentation- x I saw and evaluated the patient. I have also reviewed all the pertinent lab results and diagnostic results. I agree with the findings and the plan of care as documented in the PA's/PRINT COLOR MATCHER's documentation. LLE cellulitis [] I have reviewed the ED Record and agree with the PA's/PRINT COLOR MATCHER's documentation. [] Additions or exceptions (if any) to the PAs/PRINT COLOR MATCHER's note and plan are summarized below: [] (Sean TALLEY,Tip) Critical Care Note Critical Care Note Critical Care Time: non-applicable (Loree Quintero)
--- NOTE | 2017-10-29 01:11 | History & Physical ---
Chuck Mays 10/29/17 0110: General Information and HPI MD Statement: I have seen and personally examined BASIA PACKER and documented this H&P. The patient is a 42 year old F who presented with a patient stated chief complaint of left foot redness and swelling Source of Information: patient Exam Limitations: no limitations History of Present Illness: This is a 42-year-old female with past medical history significant for obstructive sleep apnea not on CPAP, asthma, not on home oxygen, hypertension, hyperlipidemia, anxiety, diabetes mellitus, hypothyroidism, constipation, GERD, history of multiple admissions for DVT and PE presented to the hospital for worsening left foot redness and swelling associated with pain for 5 days. Patient reports left foot pain which started 5 days ago, initially she felt a cramping sensation, later progressed to severe 10 out of 10 pain. The very next day she developed swelling of left foot associated with redness. She also reports chills but never checked her temperature at home. Because of worsening ambulation from left foot pain she decided to come to the emergency room for further evaluation. She denied any fall, injury to her left leg and foot. No trauma. She has history of diabetes mellitus, no wounds were noticed on left foot. Denies sick contact or travel history. Of note patient reports extensive history of DVT and PE since 2005. [facility] was [facility] for DVT and pulmonary embolism, status post intubation for 3 months status post extubation and tracheostomy in 2005. Also reported couple of admissions again for DVT and PE in 2006. Trach was removed 3 years ago. 3 weeks back wound closure was done. Reports family history of blood clots. She denied any fever, chest pain, short of breath, palpitations, cough, nausea, vomiting, abdominal pain, change in bladder or bowel habits. She denied smoking , alcohol abuse, illicit drug abuse. Allergies/Medications Compliance With Home Meds: GOOD Past History Travel History Traveled to [place] past 21 day No Medical History Neurological: NONE EENT: NONE Cardiovascular: hypertension, hyperlipidemia Respiratory: asthma, obstructive sleep apnea Gastrointestinal: NONE Hepatic: NONE Renal: NONE Musculoskeletal: NONE Psychiatric: NONE Endocrine: diabetes, hypothyroidism Blood Disorders: DVT, PE Surgical History Surgical History: non-contributory Past Family/Social History Psychosocial History Smoking Status: Never Smoked ETOH Use: denies use Illicit Drug Use: denies illicit drug use Review of Systems Review of Systems Constitutional: Reports: chills. Denies: diaphoresis, fever, malaise, weakness, unexplained weight loss. EENTM: Denies: blurred vision, double vision. Cardiovascular: Denies: chest pain, edema, orthopena, palpitations, peripheral edema, syncope. Respiratory: Denies: cough, hemoptysis, orthopnea, short of breath, sputum production, stridor. GI: Denies: abdominal pain, bloating, constipation, diarrhea, distention. Genitourinary: Denies: discharge, dysuria, frequency. Musculoskeletal: Denies: back pain, gout, joint pain. Skin: Reports: dryness, erythema. Neurological/Psychological: Denies: anxiety, ataxia, dementia, headache. Exam & Diagnostic Data Last 24 Hrs of Vital Signs/I&O Vital Signs Date Time Temp Pulse Resp B/P B/P Pulse O2 O2 Flow FiO2 Mean Ox Delivery Rate 10/28 2146 98.6 88 18 135/80 98 Room Air Room Air 10/28 1948 98.5 94 18 134/78 98 Room Air Room Air 10/28 1708 98.0 114 18 138/82 94 Room Air Intake & Output 10/29 0800 10/29 0000 10/28 1600 Intake Total Output Total Balance Patient 113.398 kg Weight Physical Exam General Appearance Alert, Oriented X3, Cooperative, No Acute Distress Skin No Rashes, No Breakdown Skin Temp/Moisture Exam: Hot/Dry Sepsis Skin Exam (color): Normal for Ethnicity HEENT Atraumatic, PERRLA, EOMI, Mucous Membr. moist/pink Neck Supple, No JVD, No thryomegaly, trach closed. air bubble as per patient. swelling of neck Lymphatic Axillary nl, Cervical nl Cardiovascular Normal S1, Normal S2, No Murmurs Lungs Normal Air Movement Abdomen Normal Bowel Sounds, Soft, No Tenderness Extremities No Clubbing, No Cyanosis, Normal Pulses, tender to touch, warmth, hot and swollen left foot Last 24 Hrs of Labs/Mathieu: Laboratory Tests 10/28/17 1802: Anion Gap 10, Estimated GFR 41 L, BUN/Creatinine Ratio 20.7, Glucose 296 H, Calcium 9.5, Total Bilirubin 0.2, AST 15, ALT 23, Alkaline Phosphatase 101, Pro- B-Natriuretic Pept 107, Total Protein 7.0, Albumin 3.8, Globulin 3.2, Albumin/ Globulin Ratio 1.2, PT 11.4, INR 1.05, APTT 31, CBC w Diff NO MAN DIFF REQ, RBC 4.27, MCV 85.1, MCH 28.0, MCHC 32.9 L, RDW 14.4, MPV 6.9 L, Gran % 70.5, Lymphocytes % 21.2, Monocytes % 6.0, Eosinophils % 1.7, Basophils % 0.6, Absolute Granulocytes 6.2, Absolute Lymphocytes 1.9, Absolute Monocytes 0.5, Absolute Eosinophils 0.2, Absolute Basophils 0.1 Assessment/Plan Assessment: This is a 42-year-old female with past medical history significant for obstructive sleep apnea not on CPAP, asthma, not on home oxygen, hypertension, hyperlipidemia, anxiety, diabetes mellitus, hypothyroidism, constipation, GERD, history of multiple admissions for DVT and PE presented to the hospital for worsening left foot redness and swelling associated with pain for 5 days. ------ Vitals afebrile, heart rate 114, respiratory rate 18, blood pressure 138/82, saturating at 94 on room air. Labs WBC 8.7, hemoglobin 11 and hematocrit 36, platelets 472 INR 1.05 Sodium 139, potassium 4.4, BUN 29 and creatinine 1.4, blood glucose 296 Patient was given morphine IV 4 mg 2, Tylenol, Eliquis 10 mg, 1 bag of sodium chloride Left foot cellulitis Patient reports left foot pain which started 5 days ago, severe 10 out of 10 pain, associated with swelling and redness. Because of worsening ambulation from left foot pain she decided to come to the emergency room for further evaluation. She denied any fall, injury to her left leg and foot. No trauma. She has history of diabetes mellitus, no wounds were noticed on left foot. Denies sick contact or travel history. * Possibilities of left foot pain-most likely left foot cellulitis which is nonpurulent and community-acquired. Also given history of multiple DVT there is high chance for deep vein thrombosis. * Admit to GEN med * Monitor vitals every shift * Monitor for fever, leukocytosis * Monitor for worsening signs of infection like swelling redness tenderness * Will start her on IV antibiotic- cefazolin * Blood cultures 2 * Will get venous doppler of left lower extremity to rule out DVT * Ankle x-ray History of prior DVT, PE Of note patient reports extensive history of DVT and PE since 2005. She was [facility] for DVT and pulmonary embolism, status post intubation for 3 months status post extubation and tracheostomy in 2005. Also reported couple of admissions again for DVT and PE in 2006. Trach was removed 3 years ago. 3 weeks back wound closure was done. Reports family history of blood clots. * Ultrasound left lower extremity to rule out deep vein thrombosis * Of note patient was given 1 dose of apixaban 10 mg in the emergency room. * Meanwhile will continue heparin subcutaneous for DVT prophylaxis Acute kidney injury Creatinine 1.4 at the time of admission, baseline creatinine 1. BUN elevated 29. Looks like prerenal azotemia from dehydration and infection. She has not been drinking water regularly. Of note she reported taking ibuprofen for foot pain * Received 1 L IV bolus in the emergency room. * Will continue maintenance fluids * Avoid nephrotoxic agents * please hold hydrochlorothiazide and lisinopril given AK I * Avoid NSAIDS * Follow-up creatinine in the a.m. Chronic medical conditions Diabetes adqgmeja-Weqc-Brrgo and NovoLog sliding scale Obstructive sleep apnea-not on CPAP COPD-TRC nebs Hyperlipidemia-Lipitor 40 daily Hypertension-please hold hydrochlorothiazide and lisinopril given AK I Anxiety-hydroxyzine 25 daily as needed Hypothyroidism-levothyroxine 200 mcg daily GERD-omeprazole 40 daily Full code DVT prophylaxis subcu heparin Consistent carbohydrate diet 3 Pain pathway ordered As Ranked By This Provider Problem List: 1. Cellulitis of left foot 2. Leg pain Core Measures/Misc (11/27) Acute Coronary Syndrome ACS Diagnosis: No Congestive Heart Failure Congestive Heart Failure Diagnosis No Cerebrovascular Accident CVA/TIA Diagnosis: No VTE (View Protocol) VTE Risk Factors Acute Medical Illness No Mechanical VTE Prophylaxis d/t Medical Contraindication No VTE Pharm Prophylaxis d/t Medical Contraindication Sepsis (View protocol) Sepsis Present: No If YES complete Sepsis Event Note If YES complete Sepsis Event Note Otoniel Gr MD 10/29/17 0605: General Information and HPI MD Statement: I have seen and personally examined BASIA PACKER and documented this H&P. The patient is a 42 year old F who presented with a patient stated chief complaint of []. Source of Information: patient Allergies/Medications Allergies: Coded Allergies: adhesive tape (Mild, RASH 12/03/16) doxycycline (Mild, RASH 12/03/16) latex (Mild, RASH 12/03/16) Home Med list Albuterol Sulfate (Proair Hfa) 90 MCG HFA.AER.AD 2 PUF INH Q4-6 PRN PRN COUGH SOB Atorvastatin Calcium 40 MG TABLET 1 TAB PO DAILY CHOLESTEROL Ergocalciferol (Vitamin D2) (Vitamin D2) 50,000 UNIT CAPSULE 1 CAP PO QSUN VITAMIN (Reported) Hydrochlorothiazide 25 MG TABLET 1 TAB PO DAILY DIURETIC (Reported) Hydroxyzine HCl (hydrOXYzine HCl) 25 MG TABLET 1 TAB PO DAILY PRN ANXIETY ( Reported) Insulin NPL/Insulin Lispro (Humalog Mix 50-50 Kwikpen) 100 UNIT/ML (50-50) INSULN.PEN 25 UNITS SC TIDAC/HS DM (Reported) Levothyroxine Sodium 200 MCG TABLET 1 TAB PO DAILY HYPOTHYROIDISM Linaclotide (Linzess) 145 MCG CAPSULE 1 CAP PO DAILY COSTIPATION (Reported) Lisinopril 10 MG TABLET 1 TAB PO DAILY BP (Reported) Metformin HCl 1,000 MG TABLET 1 TAB PO BID DIABETES Omeprazole 40 MG CAPSULE.DR 1 CAP PO DAILY GERD Past History Medical History Cardiovascular: hypertension, hyperlipidemia Respiratory: obstructive sleep apnea Endocrine: diabetes, hypothyroidism Surgical History Surgical History: status post long-term ventilation and trach placement Past Family/Social History Psychosocial History Smoking Status: Never Smoked ETOH Use: denies use Illicit Drug Use: denies illicit drug use Review of Systems Review of Systems Constitutional: Reports: see HPI. Exam & Diagnostic Data Last 24 Hrs of Vital Signs/I&O Vital Signs Date Time Temp Pulse Resp B/P B/P Pulse O2 O2 Flow FiO2 Mean Ox Delivery Rate 10/29 349 98.1 91 20 120/70 93 Room Air 10/29 0322 97.9 95 18 133/78 95 Room Air 10/28 2147 98.6 88 18 135/80 98 Room Air Room Air 10/28 1948 98.5 94 18 134/78 98 Room Air Room Air 10/28 1708 98.0 114 18 138/82 94 Room Air Intake & Output 10/29 0800 10/29 0000 10/28 1600 Intake Total Output Total Balance Patient 250 lb 250 lb Weight Physical Exam General Appearance Alert, Oriented X3, Cooperative, No Acute Distress Skin Temp/Moisture Exam: Hot/Dry Sepsis Skin Exam (color): Normal for Ethnicity HEENT Atraumatic, PERRLA, EOMI, Mucous Membr. moist/pink Neck Supple, No JVD, No thryomegaly, trach closed. air bubble as per patient. swelling of neck Lymphatic Axillary nl, Cervical nl Cardiovascular Regular Rate, Normal S1, Normal S2, No Murmurs Lungs Clear to Auscultation, Normal Air Movement Abdomen Normal Bowel Sounds, Soft, No Tenderness Extremities tender to touch, warmth, hot and swollen left foot Last 24 Hrs of Labs/Mathieu: Laboratory Tests 10/29/17 0250: Urine Test NEGATIVE 10/28/17 1802: Anion Gap 10, Estimated GFR 41 L, BUN/Creatinine Ratio 20.7, Glucose 296 H, Calcium 9.5, Total Bilirubin 0.2, AST 15, ALT 23, Alkaline Phosphatase 101, Pro- B-Natriuretic Pept 107, Total Protein 7.0, Albumin 3.8, Globulin 3.2, Albumin/ Globulin Ratio 1.2, PT 11.4, INR 1.05, APTT 31, CBC w Diff NO MAN DIFF REQ, RBC 4.27, MCV 85.1, MCH 28.0, MCHC 32.9 L, RDW 14.4, MPV 6.9 L, Gran % 70.5, Lymphocytes % 21.2, Monocytes % 6.0, Eosinophils % 1.7, Basophils % 0.6, Absolute Granulocytes 6.2, Absolute Lymphocytes 1.9, Absolute Monocytes 0.5, Absolute Eosinophils 0.2, Absolute Basophils 0.1 Microbiology 10/29 353 BLOOD: Blood Culture - COLB 10/29 353 BLOOD: Blood Culture - COLB Core Measures/Misc (11/27) Sepsis (View protocol) If YES complete Sepsis Event Note If YES complete Sepsis Event Note Attending MD Review Statement Attending Statement Attending MD Statement: examined this patient, discuss w/resident/PA/OUTSIDE RESIDENTIAL SALES PROFESSIONAL, agreed w/resident/PA/OUTSIDE RESIDENTIAL SALES PROFESSIONAL Attending Assessment/Plan: This patient is a 42-year-old female with a significant past medical history for obstructive sleep apnea not on CPAP, asthma, not on home oxygen, hypertension, hyperlipidemia, anxiety, diabetes mellitus, hypothyroidism, constipation, GERD, history of multiple admissions for DVT and PE presented to the hospital for worsening left foot redness and swelling associated with pain for 5 days. The patient reports left foot pain which started 5 days ago, initially she felt a cramping sensation, later progressed to severe 10 out of 10 pain. The very next day she developed swelling of left foot associated with redness. With worsening ambulation from left foot pain she decided to come to the emergency room for further evaluation. The patient reports extensive history of DVT and PE since 2005. Upon evaluation in the emergency department the patient is afebrile with stable vital signs, mild leukocytosis of 11.9, mild elevation and platelets 472, INR 1.05, BUN 29/creatinine 1.4, and no radiologic studies. The patient is being admitted to the general medicine for left foot cellulitis, unable to ambulate secondary to pain/swelling and possible DVT. Will continue IV antibiotics and obtain a venous Doppler in the a.m. FULL CODE.
[2017-10-29 03:50] VITALS: BP 120/70
[2017-10-29 09:30] LABS: ABSOLUTE BASOPHIL COUNT 0 /CUMM (0.0-0.2); ABSOLUTE EOSINOPHIL COUNT 0.2 /CUMM (0.0-0.7); ABSOLUTE GRANULOCYTE CT 3.7 /CUMM (1.4-6.5); ABSOLUTE LYMPH COUNT 1.8 /CUMM (1.2-3.4); ABSOLUTE MONOCYTE COUNT 0.4 /CUMM (0.10-0.60); BASOPHIL % 0.7 % (0.0-2.0); GRANULOCYTE % 59.6 % (42.2-75.2); HEMATOCRIT 33.5 % (37-47); MEAN CORPUSCULAR HGB 28.3 PG (27.0-31.0); MEAN CORPUSCULAR HGB CONC 33.1 G/DL (33.0-37.0); MEAN CORPUSCULAR VOLUME 85.4 FL (81.0-99.0); MEAN PLATELET VOLUME 7.1 FL (7.4-10.4); PLATELET COUNT 445 /CUMM (130-400); RBC DISTRIBUTION WIDTH 14.2 % (11.5-14.5); RED BLOOD CELL CT 3.92 /CUMM (4.20-5.40); WHITE BLOOD CELL COUNT 6.1 /CUMM (4.8-10.8)
[2017-10-29 14:43] VITALS: BP 128/90
--- NOTE | 2017-10-29 16:59 | ULTRASOUND REPORT ---
EXAMINATION: US TRIPLEX LOWER EXTREMITY, LEFT CLINICAL INFORMATION: Left leg pain. COMPARISON: None TECHNIQUE: Color-flow triplex imaging with spectral analysis and compression Doppler were performed on the lower extremity. FINDINGS: Respiratory variation, normal compression and augmented flow are noted throughout the lower extremity. The visualized common femoral vein, superficial femoral vein, profunda femoral vein, popliteal vein and midcalf peroneal and posterior tibial venous segments show no evidence of deep venous thrombosis. There is no Guerrero's cyst. IMPRESSION: No evidence of deep venous thrombosis involving the left lower extremity.
[2017-10-29 22:09] VITALS: BP 164/100
[2017-10-30 03:30] VITALS: BP 140/70
--- NOTE | 2017-10-30 06:49 | PN- Housestaff ---
[place] 10/30/17 0648: Subjective Follow-up For: Left foot cellulitis JOELLE Morbid obesity History of prior DVT, PE Diabetes mellitus Obstructive sleep apnea COPD Hyperlipidemia Hypertension Anxiety Hypothyroidism GERD Subjective: I visited and examined the patient is morning, she was sitting in her bed, in no acute distress, alert and oriented 3. There was no report or complaint of fever, chills, sweating, chest pain, lightheadedness, dizziness, shortness of breath, abdominal pain, constipation, diarrhea, dysuria, frequency, or pain in extremities. She believed that the condition of the cellulitis in her left foot has improved significantly, and she wanted to be discharged. She was not able to walk on her left foot when she was admitted, now she can walk on her left foot with no pain. Review of Systems Constitutional: Reports: see HPI. Objective Last 24 Hrs of Vital Signs/I&O Vital Signs Date Time Temp Pulse Resp B/P B/P Pulse O2 O2 Flow FiO2 Mean Ox Delivery Rate 10/30 0330 98.8 87 20 140/70 94 Room Air 10/29 2209 98.7 88 18 164/100 95 Room Air 10/29 1443 98.0 62 18 128/90 98 Room Air Intake & Output 10/30 1600 10/30 0800 10/30 0000 Intake Total 100 600 Output Total Balance 100 600 Intake, IV 0 300 Intake, Oral 100 300 Number 0 Bowel Movements Physical Exam General Appearance: Alert, Oriented X3, Cooperative, No Acute Distress Skin: No Rashes Skin Temp/Moisture Exam: Warm/Dry Sepsis Skin Exam (color): Normal for Ethnicity HEENT: Atraumatic Neck: No JVD, large mass in left lower part of neck with old scar. Cardiovascular: Regular Rate, Normal S1, Normal S2 Lungs: Clear to Auscultation, Normal Air Movement Abdomen: Normal Bowel Sounds, Soft, No Tenderness Extremities: No Clubbing, No Cyanosis, No Edema, improving cellulitis in left foot. Assessment/Plan Assessment: This is a 42-year-old female with past medical history significant for obstructive sleep apnea not on CPAP, asthma, not on home oxygen, hypertension, hyperlipidemia, anxiety, diabetes mellitus, hypothyroidism, constipation, GERD, history of multiple admissions for DVT and PE presented to the hospital for worsening left foot redness and swelling associated with pain for 5 days. The patient is on observation in hospital. Left foot cellulitis: she reports left foot pain which started 5 days ago, severe 10 out of 10 pain, associated with swelling and redness. Because of worsening ambulation from left foot pain she came to ED. She denied any fall, injury to her left leg and foot. No trauma. She has history of diabetes mellitus, no wounds were noticed on left foot. Denies sick contact or travel history. On the second day of admission the cellulitis has improved significantly, she has no pain and can walk without difficulty on the left foot. Plan: We will monitor closely, cefazolin IV, blood cultures 2, ankle x-ray to rule out osteomyelitis-ruled out, venous Doppler sonography of lower extremities to rule out DVT-ruled out. Previous DVT, PE: extensive history of DVT and PE since 2005. She was admitted to [facility] in 2005 for DVT and pulmonary embolism, status post intubation for 3 months status post extubation and tracheostomy in 2005. Also reported couple of admissions again for DVT and PE in 2006. Trach was removed 3 years ago. 3 weeks back wound closure was done. Reports family history of blood clots. Plan: Lower extremity deep vein sonography ruled out DVT, patient received 1 dose of Copaxone 10 mg in ED, she was on heparin after the, subcutaneous heparin. Acute kidney injury: Creatinine 1.4 at the time of admission, baseline creatinine 1. BUN elevated 29. Looks like prerenal azotemia from dehydration and infection. She has not been drinking water regularly. Of note she reported taking ibuprofen for foot pain. Cr: 1.4--->1.2---> BUN:29--->21---> Plan: The patient was hydrated with normal saline, nephrotoxic agents avoided including NSAIDs, hydrochlorothiazide and lisinopril were held. Diabetes mellitus: The patient has DM. Plan: Accu-Cheks and NovoLog sliding scale Obstructive sleep apnea: She has JOSE MARTIN and not on CPAP Plan: She is currently stable COPD: She has a history of COPD Plan: [facility] flo Hyperlipidemia: She has a history of hyperlipidemia Plan: Lipitor 40 daily Hypertension: Patient has hypertension Plan: Please hold hydrochlorothiazide and lisinopril given JOELLE Anxiety: Plan: Hydroxyzine 25 daily as needed Hypothyroidism: Plan: Levothyroxine 200 mcg daily GERD: Plan: Omeprazole 40 daily Morbid obesity: She has a BMI of 44.3 Plan: We will advise her to watch her diet and try to lose weight after she is discharged. Full code DVT prophylaxis subcu heparin Consistent carbohydrate diet 3 Pain pathway ordered Problem List: 1. Cellulitis of left foot 2. JOELLE (acute kidney injury) 3. Diabetes mellitus 4. Obstructive sleep apnea 5. COPD (chronic obstructive pulmonary disease) 6. Hyperlipidemia 7. Hypertension 8. Hypothyroidism 9. GERD (gastroesophageal reflux disease) 10. Morbid obesity 11. Anxiety Pain Ratin Pain Location: NA Pain Goal: Remain pain free Pain Plan: NA Tomorrow's Labs & Rationales: Reji Alvarez MD 10/30/17 2307: Attending MD Review Statement Attending Statement Attending MD Statement: examined this patient, discuss w/resident/PA/RADIO INSTALLER [employer]OMOBILE, agreed w/resident/PA/RADIO INSTALLER [employer]OMOBILE, discussed with family, reviewed EMR data (avail), discussed with nursing, discussed with case mgmt, amended to note Attending Assessment/Plan: The patient was seen and discussed with house staff. Significant improvement in leg with IV Cefazolin. OK to discharge today on po Keflex. Follow-up with PCP.
[2017-10-30] MEDS ORDERED: KEFLEX500 M1 PO ×2 (11:19→11:31)
--- NOTE | 2017-10-30 11:20 | Patient Discharge Instructions ---
Discharge Instructions General Discharge Information You were seen/treated for: Cellulitis Special Instructions: Please follow up with your pcp within 1 week of discharge Please complete the full course of antibiotics as prescribed. Acute Coronary Syndrome Inclusion Criteria At DC or during hospital stay patient has or had the following: ACS DIAGNOSIS No Discharge Core Measures Meds if any: Prescribed or Continued at Discharge Meds if any: NOT Prescribed or Continued at Discharge Congestive Heart Failure Inclusion Criteria At DC or during hospital stay patient has or had the following: CHF DIAGNOSIS No Discharge Core Measures Meds if any: Prescribed or Continued at Discharge Meds if any: NOT Prescribed or Continued at Discharge Cerebrovascular accident Inclusion Criteria At DC or during hospital stay patient has or had the following: CVA/TIA Diagnosis No Discharge Core Measures Meds if any: Prescribed or Continued at Discharge Meds if any: NOT Prescribed or Continued at Discharge Venous thromboembolism Inclusion Criteria VTE Diagnosis No VTE Type NONE VTE Confirmed by (Test) NONE Discharge Core Measures - Per Current guidelines, there needs to be overlap - treatment for the first 5 days of Warfarin therapy. - If discharged on Warfarin prior to 5 days of - overlap therapy, the patient will need to be - assessed for post discharge needs including - *Post discharge parental anticoagulation - *Warfarin and/or parental anticoagulation education - *Follow up date to check INR post discharge At least 5 days overlap therapy as Inpatient No Meds if any: Prescribed or Continued at Discharge Note: Overlap Therapy is Warfarin and Anticoagulant Meds if any: NOT Prescribed or Continued at Discharge
--- NOTE | 2017-10-30 11:51 | Discharge Summary ---
Visit Information Visit Dates Admission Date: 10/29/17 Discharge Date: 10/30/2017 Hospital Course Course Attending Physician: Reji Vera MD Primary Care Physician: Tammy TALLEY,Tammy [facility] Course: This is a 42-year-old female with past medical history significant for obstructive sleep apnea not on CPAP, asthma, not on home oxygen, hypertension, hyperlipidemia, anxiety, diabetes mellitus, hypothyroidism, constipation, GERD, history of multiple admissions for DVT and PE presented to the hospital for worsening left foot redness and swelling associated with pain for 5 days. The patient is on observation in hospital. Left foot cellulitis: she reports left foot pain which started 5 days ago, severe 10 out of 10 pain, associated with swelling and redness. Because of worsening ambulation from left foot pain she came to ED. She denied any fall, injury to her left leg and foot. No trauma. She has history of diabetes mellitus, no wounds were noticed on left foot. Denies sick contact or travel history. On the second day of admission the cellulitis has improved significantly, she has no pain and can walk without difficulty on the left foot. Plan: We will monitor closely, cefazolin IV, blood cultures 2, ankle x-ray to rule out osteomyelitis-ruled out, venous Doppler sonography of lower extremities to rule out DVT-ruled out. She will be discharged on cephalexin p.o. for 5 more days. Previous DVT, PE: extensive history of DVT and PE since 2005. She was admitted to [facility] in 2005 for DVT and pulmonary embolism, status post intubation for 3 months status post extubation and tracheostomy in 2005. Also reported couple of admissions again for DVT and PE in 2006. Trach was removed 3 years ago. 3 weeks back wound closure was done. Reports family history of blood clots. Plan: Lower extremity deep vein sonography ruled out DVT, patient received 1 dose of Copaxone 10 mg in ED, she was on heparin after the, subcutaneous heparin. Acute kidney injury: Creatinine 1.4 at the time of admission, baseline creatinine 1. BUN elevated 29. Looks like prerenal azotemia from dehydration and infection. She has not been drinking water regularly. Of note she reported taking ibuprofen for foot pain. Cr: 1.4--->1.2--->1.0 BUN:29--->21--->14 Plan: The patient was hydrated with normal saline, nephrotoxic agents avoided including NSAIDs, hydrochlorothiazide and lisinopril were held. Diabetes mellitus: The patient has DM. Plan: Accu-Cheks and NovoLog sliding scale Obstructive sleep apnea: She has JOSE MARTIN and not on CPAP Plan: She is currently stable COPD: She has a history of COPD Plan: TR nebs Hyperlipidemia: She has a history of hyperlipidemia Plan: Lipitor 40 daily Hypertension: Patient has hypertension Plan: Please hold hydrochlorothiazide and lisinopril given JOELLE Anxiety: Plan: Hydroxyzine 25 daily as needed Hypothyroidism: Plan: Levothyroxine 200 mcg daily GERD: Plan: Omeprazole 40 daily Morbid obesity: She has a BMI of 44.3 Plan: We will advise her to watch her diet and try to lose weight after she is discharged. Full code DVT prophylaxis subcu heparin Consistent carbohydrate diet 3 Pain pathway ordered Allergies: Coded Allergies: adhesive tape (Mild, RASH 12/03/16) doxycycline (Mild, RASH 12/03/16) latex (Mild, RASH 12/03/16) Significant Procedures: EXAM TYPE: US - US-DUPLEX VENOUS EXTREM UNI EXAMINATION: US TRIPLEX LOWER EXTREMITY, LEFT CLINICAL INFORMATION: Left leg pain. COMPARISON: None TECHNIQUE: Color-flow triplex imaging with spectral analysis and compression Doppler were performed on the lower extremity. FINDINGS: Respiratory variation, normal compression and augmented flow are noted throughout the lower extremity. The visualized common femoral vein, superficial femoral vein, profunda femoral vein, popliteal vein and midcalf peroneal and posterior tibial venous segments show no evidence of deep venous thrombosis. There is no Guerrero's cyst. IMPRESSION: No evidence of deep venous thrombosis involving the left lower extremity. Pertinent Lab Results: Creatinine: 1.4---1.2---1.0 BUN: 29---21---14 WBC: 8.7---6.1 Hb: 11.9---11.1 INR: 1.05 Disposition Summary Disposition Principal Diagnosis: Left foot cellulitis JOELLE Additional Diagnosis: Morbid obesity History of prior DVT, PE Diabetes mellitus Obstructive sleep apnea COPD Hyperlipidemia Hypertension Anxiety Hypothyroidism GERD Discharge Disposition: home or self care Discharge Instructions General Discharge Information Code Status: Full Code Patient's Diet: Consistent carbohydrates 3 Patient's Activity: As tolerated Follow-Up Instructions/Appts: Please complete the course of antibiotic for 5 more days Please follow-up with your PCP Please call your PCP if you notice any worsening of the cellulitis in your foot, or any fever, or chills. Medications at Discharge Discharge Medications: Continue taking these medications: Metformin HCl (Metformin HCl) 1,000 MG TABLET 1 Tablet ORAL TWICE DAILY Qty = 60 Comments: NOT GIVEN IN HOSPITAL Omeprazole (Omeprazole) 40 MG CAPSULE.DR 1 Capsule ORAL DAILY Qty = 30 Comments: Last Taken: 10/30/17 Time: 6:00AM Atorvastatin Calcium (Atorvastatin Calcium) 40 MG TABLET 1 Tablet ORAL DAILY Qty = 30 Comments: Last Taken: 10/29/17 Time: 5:30PM Levothyroxine Sodium (Levothyroxine Sodium) 200 MCG TABLET 1 Tablet ORAL DAILY Qty = 30 Comments: Last Taken: 10/30/17 Time: 6:00AM Linaclotide (Linzess) 145 MCG CAPSULE 1 Capsule ORAL DAILY Qty = 90 Comments: NOT GIVEN IN HOSPITAL Ergocalciferol (Vitamin D2) (Vitamin D2) 50,000 UNIT CAPSULE 1 Capsule ORAL EVERY MONDAY Qty = 6 Comments: NOT GIVEN IN HOSPITAL Insulin NPL/Insulin Lispro (Humalog Mix 50-50 Kwikpen) 100 UNIT/ML (50-50) INSULN.PEN 25 Units SC BEFORE MEALS AND AT BEDTIME Comments: NOVOLOG Last Taken: 10/30/17 Time: 1:00PM Albuterol Sulfate (Proair Hfa) 90 MCG HFA.AER.AD 2 Puff Inhale through mouth EVERY 4-6 HOURS NEEDED as needed for COUGH SOB Qty = 1 Comments: NOT GIVEN IN HOSPITAL Lisinopril (Lisinopril) 10 MG TABLET 1 Tablet ORAL DAILY Qty = 30 Comments: NOT GIVEN IN HOSPITAL Hydroxyzine HCl (hydrOXYzine HCl) 25 MG TABLET 1 Tablet ORAL DAILY as needed for ANXIETY Qty = 30 Comments: NOT GIVEN IN HOSPITAL Hydrochlorothiazide (Hydrochlorothiazide) 25 MG TABLET 1 Tablet ORAL DAILY Qty = 30 Comments: NOT GIVEN IN HOSPITAL Start taking the following new medications: Cephalexin (Keflex) 500 MG CAPSULE 1 Capsule ORAL 4 TIMES A DAY Qty = 40 No Refills Instructions: Please take 4 times per day. Comments: Last Taken: 10/30/17 Time: 2:00PM Copies To: Tammy TALLEY,Tammy Attending Review Statement Documenting Attending: Reji Vera MD Other Findings: The patient was seen on the day of discharge. She had significant improvement in cellulitis with IV Cefazolin and was changed to po Keflex today to complete 7 day course. Will follow-up with PCP in 1 week.
== END 2017-10-30 15:50 ==
LOC: ERH 16:55 → 2NA 10-29 00:40 → ERHI 10-29 00:40 → EDBEDREQ 10-29 01:55 → EDBEDREQTM 10-29 01:55 → ERHI 10-29 02:12 → ENRESERV 10-29 02:48 → 2NA 10-29 03:35 → ENPENDDIS 10-30 11:53 → 2NA 10-30 15:50
PROVIDERS: Hospitalist; Physician Assistant
DX: L03.116 Cellulitis of left lower limb (principal); G47.33 Obstructive sleep apnea (adult) (pediatric); J45.909 Unspecified asthma, uncomplicated; I10 Essential (primary) hypertension; E78.5 Hyperlipidemia, unspecified; F41.9 Anxiety disorder, unspecified; E11.9 Type 2 diabetes mellitus without complications; Z79.4 Long term (current) use of insulin; Z79.84 Long term (current) use of oral hypoglycemic drugs; E03.9 Hypothyroidism, unspecified; K59.00 Constipation, unspecified; K21.9 Gastro-esophageal reflux disease without esophagitis; Z86.718 Personal history of other venous thrombosis and embolism; N17.9 Acute kidney failure, unspecified; J44.9 Chronic obstructive pulmonary disease, unspecified; Z68.41 Body mass index [BMI] 40.0-44.9, adult; E66.01 Morbid (severe) obesity due to excess calories
CPT/HCPCS: 36415; 81025; 82436; 87040; 96361; 96372; 96374; 96375; 96376; G0378; J0131; J0690; J1644; J1815; J3490